=== PATIENT | male | born 1965 | race Caucasian/White ===

== ENCOUNTER 2024-03-30 11:04 | Inpatient (IN) | payer SELFPAY ==
[~2024-03-30] VITALS: Ht 170.2 cm; Wt 85.7 kg
[2024-03-30] MEDS ORDERED: KETOROLAC 30MG/ML VIAL IV STA (11:50)
[2024-03-30 12:35] LABS: HEMATOCRIT. 40.6 % (42.0-52.0); HEMOGLOBIN. 13.3 g/dL (14.0-18.0); MEAN CORPUSCULAR HEMOGLOBIN 34.2 pg (28.0-32.0); MEAN CORPUSCULAR HGB CONC 32.7 g/dL (31.0-37.0); MEAN CORPUSCULAR VOLUME 104.7 fL (80.0-94.0); MEAN PLATELET VOLUME 6.6 fl (7.4-10.4); PLATELET 199 x1000/uL (130-400); RED BLOOD CELL COUNT 3.87 mill/uL (4.7-6.1); RED CELL DISTRIBUTION WIDTH 14.8 % (11.6-14.6); WHITE BLOOD COUNT 7.5 x1000/uL (4.5-11.0)
[2024-03-30 12:39] LABS: CHLORIDE 107 mEq/L (98-107); DIFFERENTIAL COMMENT 1; POTASSIUM 4.3 mEq/L (3.5-5.1); SODIUM 136 mEq/L (136-145)
[2024-03-30 12:40] LABS: CALCIUM 9.1 mg/dL (8.7-10.4); CARBON DIOXIDE 21 mEq/L (21-32)
[2024-03-30 12:45] LABS: CREATININE 0.7 mg/dL (0.6-1.3); GLUCOSE 94 mg/dL (70-105); INR 1.2; PROTHROMBIN TIME 13.5 sec (9.6-11.0); UREA NITROGEN BLOOD 11 mg/dL (9-23)
[2024-03-30 12:47] LABS: ALANINE AMINOTRANSFERASE 19 IU/L (10-49); ALBUMIN 3.2 g/dL (3.2-4.8); ASPARTATE AMINOTRANSFERASE 59 IU/L (<34); BILIRUBIN DIRECT 2.1 mg/dL (<=3.0); BILIRUBIN TOTAL 4.1 mg/dL (0.1-1.0)
[2024-03-30 14:52] LABS: PLATELET ESTIMATE NORMAL
[2024-03-30] MEDS: MORPHINE SULFATE 4 MG/ML INJ (FOR IV/IM USE) IV STA (19:30)
[2024-03-30] MEDS: ONDANSETRON HCL 4MG/2ML INJ IV STA (19:30)
[2024-03-30] MEDS ORDERED: ACETAMINOPHEN 325MG TABLET PO PRN ×2 (23:30)
[2024-03-30] MEDS ORDERED: DIPHENHYDRAMINE 50MG/ML VIAL IV PRN (23:30)
[2024-03-30] MEDS ORDERED: MAGNESIUM/ALUMINUM HYDROXIDE/SIMETHICONE 30ML UDC PO PRN (23:30)
[2024-03-30] MEDS ORDERED: CLONIDINE 0.1MG TABLET PO PRN (23:30)
[2024-03-30] MEDS ORDERED: ONDANSETRON HCL 4MG/2ML INJ IV PRN (23:30)
[2024-03-31 03:03] LABS: CLARITY URINE CLEAR (CLEAR); COLOR URINE ORANGE (YELLOW); GLUCOSE URINE NEGATIVE (NEGATIVE); KETONES URINE TRACE (NEGATIVE); LEUKOCYTE ESTERASE URINE TRACE (NEGATIVE); NITRITE URINE POSITIVE (NEGATIVE); OCCULT BLOOD URINE 1+ (NEGATIVE); PROTEIN URINE NEGATIVE (NEGATIVE); SPECIFIC GRAVITY URINE 1.019 (1.005-1.030)
[2024-03-31 05:07] LABS: SQUAMOUS EPITHELIAL CELL URINE FEW /lpf (RARE/1+); WBC URINE 0-2 /hpf (0-2)
[2024-03-31 05:08] LABS: RBC URINE 0-2 /hpf (0-2)
[2024-03-31 05:09] LABS: BACTERIA URINE 1+
[2024-03-31] MEDS: SODIUM CHLORIDE 0.9% 3ML FLUSH IVF SCH (07:04)
[2024-03-31] MEDS ORDERED: LIDOCAINE HCL/PF 1% 10 MG/ML 5ML VIAL ONE (10:06)
[2024-03-31 14:37] LABS: BODY FLUID MONOCYTES 2 %; BODY FLUID RBC 1038 /cu mm (0-2000); BODY FLUID WBC 145 /cu mm (0-200)
[2024-03-31 18:33] VITALS: BP 110/71; PULSE 80; RESP 18; TEMP 36.5848
[2024-03-31 20:00] VITALS: BP 128/62; PULSE 99; RESP 18; TEMP 37.11408; O2SAT 99
[2024-04-01] VITALS: BP 135/68; PULSE 98; RESP 18; TEMP 37.503; O2SAT 100
[2024-04-01 04:00] VITALS: BP 123/60; PULSE 97; RESP 18; TEMP 37.00296; O2SAT 100
[2024-04-01 04:59] LABS: CARBON DIOXIDE 23 mEq/L (21-32); CHLORIDE 109 mEq/L (98-107); POTASSIUM 4.3 mEq/L (3.5-5.1); SODIUM 138 mEq/L (136-145)
[2024-04-01 05:00] LABS: CALCIUM 8.2 mg/dL (8.7-10.4)
[2024-04-01 05:02] LABS: AMMONIA 38 uMol/L (<32)
[2024-04-01 05:04] LABS: CREATININE 0.7 mg/dL (0.6-1.3); GLUCOSE 101 mg/dL (70-105); IRON 78 ug/dL (65-175)
[2024-04-01 05:05] LABS: UREA NITROGEN BLOOD 15 mg/dL (9-23)
[2024-04-01 05:06] LABS: ALANINE AMINOTRANSFERASE 14 IU/L (10-49); ALBUMIN 2.6 g/dL (3.2-4.8); ASPARTATE AMINOTRANSFERASE 46 IU/L (<34); TOTAL IRON BINDING CAPACITY 212 ug/dl (250-425)
[2024-04-01 05:07] LABS: BILIRUBIN DIRECT 1.3 mg/dL (<=3.0); BILIRUBIN TOTAL 2.4 mg/dL (0.1-1.0); GAMMA GLUTAMYL TRANSPEPTIDASE 94 IU/L (<73); PHOSPHORUS 3.1 mg/dL (2.5-4.9); PROTEIN TOTAL 5.6 g/dL (6.0-8.3)
[2024-04-01 05:26] LABS: FERRITIN 334 ng/mL (22-322)
[2024-04-01 05:27] LABS: FOLIC ACID (FOLATE) SERUM 9.41 ng/mL (>5.38); VITAMIN B12 SERUM 1758 pg/mL (211-911)
[2024-04-01 05:36] LABS: HEPATITIS B SURFACE ANTIGEN NEGATIVE (Negative)
[2024-04-01 05:56] LABS: HEPATITIS A AB IGM NEGATIVE (Negative)
[2024-04-01 05:58] LABS: HEPATITIS B CORE AB IGM NEGATIVE (Negative)
[2024-04-01 05:59] LABS: HEPATITIS C AB NON REACTIVE (Neg) (Negative)
[2024-04-01 06:36] LABS: HEMATOCRIT. 33.6 % (42.0-52.0); HEMOGLOBIN. 11.5 g/dL (14.0-18.0); MEAN CORPUSCULAR HEMOGLOBIN 35.2 pg (28.0-32.0); MEAN CORPUSCULAR HGB CONC 34.1 g/dL (31.0-37.0); MEAN CORPUSCULAR VOLUME 103.2 fL (80.0-94.0); MEAN PLATELET VOLUME 6.6 fl (7.4-10.4); PLATELET 173 x1000/uL (130-400); RED BLOOD CELL COUNT 3.26 mill/uL (4.7-6.1); RED CELL DISTRIBUTION WIDTH 14.3 % (11.6-14.6); WHITE BLOOD COUNT 6.3 x1000/uL (4.5-11.0)
[2024-04-01 06:41] LABS: DIFFERENTIAL COMMENT 1
[2024-04-01 08:00] VITALS: BP_SYST 126; BP_SYST 146; BP_DIAS 61; BP_DIAS 75; PULSE 82; PULSE 92; RESP 18; RESP 20; TEMP 36.61404; TEMP 37.2252; O2SAT 100; O2SAT 98
[2024-04-01 12:00] VITALS: BP 146/64; PULSE 78; RESP 20; TEMP 36.3918; O2SAT 98
[2024-04-01 15:13] VITALS: BP 146/75; PULSE 92; TEMP 97.9; O2SAT 98
[2024-04-01 16:00] VITALS: BP 144/95; PULSE 84; RESP 20; TEMP 36.114; TEMP 36.11400; O2SAT 96
[2024-04-01 19:37] LABS: PLATELET ESTIMATE NORMAL
[2024-04-01] MEDS ORDERED: CARVEDILOL 3.125 MG TABLET PO SCH (21:00)
[2024-04-01] MEDS ORDERED: SPIRONOLACTONE 25MG TABLET PO SCH (21:00)
[2024-04-02] MEDS ORDERED: FUROSEMIDE 40MG TABLET PO SCH (09:00)
== END 2024-04-01 16:01 | disposition home or self-care (01) ==
LOC: ER 11:58 → EDBEDREQTM 14:58 → EDBEDREQ 14:58 → EDBEDREQSVC 14:58 → EDBEDREQ 14:59 → EDBEDREQTM 15:16 → EDBEDREQSVC 15:16 → 5WST 21:18 → 6WST 03-31 09:00
PROVIDERS: ADMIT Internal Medicine; ATTEND Internal Medicine
PROC: 0W9G3ZZ Drainage of Peritoneal Cavity, Percutaneous Approach (ICD-10-PCS; principal; 2024-03-31)
PROC: 0W9G3ZZ Drainage of Peritoneal Cavity, Percutaneous Approach (ICD-10-PCS; 2024-04-01)
DX: K74.69 Other cirrhosis of liver (principal); K76.6 Portal hypertension; R18.8 Other ascites; D53.9 Nutritional anemia, unspecified; I10 Essential (primary) hypertension; L40.9 Psoriasis, unspecified; N39.0 Urinary tract infection, site not specified; E80.6 Other disorders of bilirubin metabolism
CPT/HCPCS: 36415; 49083; 74176; 76700; 80048; 80076; 81003; 82040; 82105; 82140; 82607; 82728; 82746; 82977; 83036; 83540; 83550; 83615; 83735; 84100; 85025; 86705; 86709; 87340; 88108; 93005; 99285; J3490

== ENCOUNTER 2025-06-11 10:15 | Emergency (ER) | payer OTHER ==
[~2025-06-11] VITALS: Ht 172.7 cm; Wt 82.0 kg
[2025-06-11 10:21] VITALS: TEMP 36.6; O2SAT 100
[2025-06-11 10:38] LABS: HEMATOCRIT. 33.2 % (42.0-52.0); HEMOGLOBIN. 11.5 g/dL (14.0-18.0); MEAN PLATELET VOLUME 6.2 fl (7.4-10.4); PLATELET 136 x1000/uL (130-400); RED BLOOD CELL COUNT 3.37 mill/uL (4.7-6.1); RED CELL DISTRIBUTION WIDTH 14.4 % (11.6-14.6)
[2025-06-11 10:52] LABS: UREA NITROGEN BLOOD 23.0 mg/dL (9-23)
[2025-06-11 10:54] LABS: CREATININE 1.7 mg/dL (0.6-1.3)
[2025-06-11 11:42] LABS: BAND% 1.0 % (1.0-6.0); EOSINOPHILS % MANUAL 9.0 % (0.0-5.0); LYMPHOCYTES % MANUAL 16.0 % (20.0-50.0); MONOCYTES % MANUAL 10.0 % (2.0-8.0); NEUTROPHILS % MANUAL 64.0 % (45.0-75.0); PLATELET ESTIMATE NORMAL
[2025-06-11 13:20] LABS: BG DEOXYHEMOGLOBIN 37.2 % (0.0-5.0)
[2025-06-11] MEDS: ALBUMIN HUMAN 25GM/100ML (25%) IV ONE (19:11)
[2025-06-11 19:29] LABS: PROTEIN BODY FLUID < 2.0 gm/dL
[2025-06-11 20:48] LABS: BODY FLUID MONOCYTES 2 %; BODY FLUID RBC 7005 /cu mm (0-2000); BODY FLUID WBC 215 /cu mm (0-200)
[2025-06-11 21:09] VITALS: BP 95/48; PULSE 85; RESP 15; O2SAT 98
== END 2025-06-11 21:21 | disposition home or self-care (01) ==
LOC: ER 10:15 → EDBEDREQ 17:29 → EDBEDREQTM 17:29 → ER 21:21 → CMPBEDREQ 06-12 07:58
DX: K74.60 Unspecified cirrhosis of liver (principal); R18.8 Other ascites
CPT/HCPCS: 49083; 99285; 96374; 80048; 82040; 82945; 83615; 83690; 84157; 85025; 87070; 87205; 89050; 36415; 82375; 82803; P9047; A4606